=== PATIENT | male | born 1960 | race Caucasian/White ===

== ENCOUNTER 2016-09-28 08:34 | Emergency (ER) | payer OTHER ==
[2016-09-28 08:57] VITALS: BP 120/88; PULSE 88; RESP 18; TEMP 98; O2SAT 97
--- NOTE | 2016-09-28 09:50 | DX ---
Left ankle, Three Views HISTORY: Trauma. Pain. FINDINGS: Slight soft tissue swelling is seen over the lateral malleolus. There appears to be a tibi otalar joint effusion. There is an irregular bone density over the dorsal aspect of the talar head wh ich could represent an avulsion fracture minimally displaced, acute or chronic. An adjacent smooth os sification which could be sequela from prior trauma. No other findings for acute fracture. Soft tissu e calcification or less likely loose body id seen anterior to the distal tibia. Mild periarticular sp urring is seen of the tibiotalar joint. IMPRESSION: Possible minimally displaced avulsion fracture of the dorsal aspect of the talar head, ac joe or chronic. Mild early degenerative change tibiotalar joint.
--- NOTE | 2016-09-28 09:54 | DX ---
Left Foot, Three Views. HISTORY: Left foot pain. FINDINGS: Minimal early degenerative change is seen in the first metatarsophalangeal joint. There is hallux valgus and bunion deformity. The cortical irregularity of the dorsal aspect of the talar head is less apparent on this study on the lateral view. There is a smooth ossification probably sequela f rom old injury near this. No other findings for acute fracture. Vascular calcifications are seen whic h could be secondary to atherosclerotic disease or diabetes. IMPRESSION: The possible avulsion fracture of the dorsal aspect of the talar head is less apparent on this study. There is an adjacent smooth ossification as sequela from prior injury. No other findin gs for acute fracture. Degenerative change as above.
--- NOTE | 2016-09-28 10:22 | UCPHY ---
H & P Time Seen by Provider: 09/28/16 09:25 Patient Type: Established HPI/ROS: 56-year-old male states he fell yesterday rolling his left foot now with severe pain in his foot Review of systems General no fever no chills no weakness HEENT no eye pain no eye discharge. No eye redness, no sore throat Respiratory no cough, no shortness of breath Cardiac no chest pain, no peripheral edema GI no abdominal pain, no diarrhea, no constipation, no nausea, no vomiting no flank pain, no hematuria, no dysuria Musculoskeletal no myalgias, positive joint pain Heme no easy bruising, no easy bleeding Endo no polyuria, no polydipsia Skin no rashes, no pruritus Neuro no syncope, no dizziness, no headaches Psych is no suicidal ideation, no homicidal ideation Patient drinks alcohol daily Past Medical/Surgical History: Depression Alcohol abuse Social History: Alcohol daily Smoking Status: Never smoked Physical Exam: 56-year-old Alert and oriented in no acute distress nontoxic appearance, afebrile Atraumatic normocephalic Neck no JVD Lungs clear to auscultation, no respiratory distress Heart regular rate and rhythm Extremities no cyanosis clubbing edema Left foot with tenderness to palpation over dorsal aspect at tibial talar joint No swelling, no ecchymosis no erythema no lymphangitic streaks Pulses intact, good capillary refill, sensation intact Constitutional: Initial Vital Signs Temperature (C) 36.6 C 09/28/16 08:54 Heart Rate 88 09/28/16 08:54 Respiratory Rate 18 09/28/16 08:54 Blood Pressure 120/88 H 09/28/16 08:54 O2 Sat (%) 97 09/28/16 08:54 O2 Delivery Mode Room Air Allergies/Adverse Reactions: No Known Allergies Allergy (Verified 12/11/15 10:04) Home Medications: Medication Instructions Recorded Hydrocodone/Acetaminophen [[place] 1 - 2 tab PO Q6H PRN #12 tab 09/28/16 5/325 (*)] MIRTAZAPINE 09/28/16 Wellbutrin Xl 09/28/16 Medical Decision Making - Diagnostics Imaging: Foot and ankle x-ray with possible talar avulsion fracture ED Course/Re-evaluation: Patient seen and evaluated for foot pain X-ray with possible avulsion fracture of the talus Patient placed in walker boot Given referral to podiatry Given short-term prescription for [place], 12. Departure - Departure Disposition: Home, Routine, Self-Care Clinical Impression: Closed avulsion fracture of left talus, Ankle sprain Condition: Good Instructions: Ankle Sprain (ED), Talar Fracture in Adults (ED) Referrals: Abdifatah Robles MD [Primary Care Provider] - As per Instructions Durga Day MD [Doctor of Podiatric Medicine] - As per Instructions Prescriptions: Hydrocodone/Acetaminophen [[place] 5/325 (*)] 1 - 2 tab PO Q6H PRN #12 tab PRN Reason: Pain, Moderate - PQRS PQRS Measurement: na
== END 2016-09-28 10:37 | disposition home or self-care (01) ==
LOC: CED 08:34
DX: S99.922A Unspecified injury of left foot, initial encounter (principal); W19.XXXA Unspecified fall, initial encounter
CPT/HCPCS: 73610-PO; 73630-PO; 99214-PO; G0463-PO; L4386

== ENCOUNTER 2016-10-05 11:44 | Emergency (ER) | payer OTHER ==
[2016-10-05 11:54] VITALS: BP 174/86; PULSE 96; RESP 18; TEMP 97.3; O2SAT 97
--- NOTE | 2016-10-05 12:11 | UCPHY ---
[id number]/pain has since traveled from l hip/knee down to foot Time Seen by Provider: 10/05/16 12:09 HPI/ROS: Chief complaint left leg and knee pain HPI: 56-year-old male who was seen here for a possible talar avulsion fracture after injury. Patient states that he has not followed up with Podiatry as instructed. He has had the last 2-3 days pain in his left knee left thigh and left lateral leg. No redness. No swelling. No fevers or chills. Patient states that he feels that while he is walking. He also states there is some mild aching pain at rest. He has been walking with a limp secondary to his left ankle injury. Denies any other falls. No other recent injuries. No chest pain or shortness of breath. ROS: 10 point Review of Systems is negative except as noted in the HPI. Physical exam: Gen: Awake, Alert, No Distress Ext: no edema, he has full range of motion of his left hip without any pain. He has full range of motion of his left knee without any pain. He has some decreased range of motion of his left ankle secondary to pain. He has no reproducible soft tissue tenderness of his thigh. There is no soft tissue tenderness of his calf. His calves are symmetric. There is no swelling. There is no pain to significant stressing of his femur. He has some very mild fibular head tenderness. No medial or lateral knee joint tenderness. There is no pain with stressing of the menisci. He has no other bony tenderness of his tibia or fibula. Skin: no rash Neuro: CN II-XII intact, Sensation grossly intact, Strength 5/5 in bilateral upper and lower extremities - Personal History Current Tetanus/Diphtheria Vaccine: Yes Tetanus Vaccine Date: 2014 - Medical/Surgical History Hx Asthma: No Hx Chronic Respiratory Disease: No Hx Diabetes: No Hx Cardiac Disease: No Hx Renal Disease: No Hx Cirrhosis: No Hx Alcoholism: No Hx HIV/AIDS: No Hx Splenectomy or Spleen Trauma: No Other PMH: C SPINE SURGERY X 2. L elbow surgery - Family History Significant Family History: No pertinent family hx - Social History Smoking Status: Never smoked Constitutional: Initial Vital Signs Temperature (C) 36.3 C 10/05/16 11:50 Heart Rate 96 10/05/16 11:50 Respiratory Rate 18 10/05/16 11:50 Blood Pressure 174/86 H 10/05/16 11:50 O2 Sat (%) 97 10/05/16 11:50 O2 Delivery Mode Room Air Allergies/Adverse Reactions: No Known Allergies Allergy (Verified 10/05/16 11:50) Home Medications: Medication Instructions Recorded Hydrocodone/Acetaminophen [[place] 1 - 2 tab PO Q6H PRN #12 tab 09/28/16 5/325 (*)] MIRTAZAPINE 09/28/16 Wellbutrin Xl 09/28/16 Medical Decision Making - Diagnostics Imaging: Left knee x-ray negative per Dr. To. ED Course/Re-evaluation: 56-year-old male with left leg pain which is relieved largely not reproducible. He is describing pain is lateral thigh and his leg. His legs are soft with certainly no evidence of compartment syndrome. There is no evidence of DVT at this time. He has no reproducible soft tissue tenderness. He has no bony tenderness with the exception of some mild tenderness at the fibular head. I have used extensive force stressing his femur, his tibia, there is no pain. There is no joint tenderness or pain. He is well-perfused. Cap refills less than 2 seconds. He has 2+ DP and PT pulses. Will check an x-ray just to rule out a fibular head injury. I suspect that his pain is secondary to changes in his gait from his ankle injury. I have encouraged him that he must follow up with the scale tester to evaluate for the possible talar fracture. Departure - Departure Disposition: Home, Routine, Self-Care Clinical Impression: Leg pain Condition: Good Instructions: Leg Pain (ED) Additional Instructions: You may alternate ibuprofen and acetaminophen as needed for pain. Please make sure to follow up with the scale tester and your primary care physician for further evaluation of her possible foot fracture. Return Urgent Care for any concerns. Referrals: Abdifatah Robles MD [Primary Care Provider] - As per Instructions - PQRS PQRS Measurement: NA
--- NOTE | 2016-10-05 12:51 | DX ---
Left Knee , 5 views, including a sunrise view History: Posterior pain post trauma. Fall September 27, 2016 Comparison: None Findings: No fracture, effusion or malalignment is identified. There is no significant arthritis. The re is dense atherosclerotic vascular calcification present. Impression: 1. No posttraumatic source for posterior knee pain identified. 2. Atherosclerosis.
== END 2016-10-05 13:13 | disposition home or self-care (01) ==
LOC: CED 11:44
DX: M25.562 Pain in left knee (principal); M79.605 Pain in left leg; I70.90 Unspecified atherosclerosis
CPT/HCPCS: 73564-PO; 99214-PO; G0463-PO

== ENCOUNTER → 2017-01-23 | Outpatient (CLI) | payer OTHER | LOC: FIMAGING 09:10 | PROVIDERS: ATTEND Physician Assistant Surgical | DX: M43.22 Fusion of spine, cervical region (principal); M43.26 Fusion of spine, lumbar region ==

== ENCOUNTER → 2017-06-12 | Outpatient (CLI) | payer OTHER | LOC: FIMAGING 09:17 | PROVIDERS: ATTEND Physician Assistant Surgical | DX: Z09 Encounter for follow-up examination after completed treatment for conditions other than malignant neoplasm (principal); Z98.1 Arthrodesis status ==

== ENCOUNTER → 2017-08-27 | Outpatient (CLI) | payer OTHER | LOC: FIMAGING 09:46 | PROVIDERS: ATTEND Physician Assistant Surgical | DX: M54.2 Cervicalgia (principal); Z98.1 Arthrodesis status ==

== ENCOUNTER → 2018-01-07 | Outpatient (CLI) | payer OTHER | LOC: FIMAGING 09:28 | PROVIDERS: ATTEND Physician Assistant Surgical | DX: Z47.89 Encounter for other orthopedic aftercare (principal); Z98.1 Arthrodesis status ==